=== PATIENT | female | born 1985 | race Caucasian/White ===

== ENCOUNTER 2016-09-12 02:48 | Emergency (ER) | payer OTHER ==
--- NOTE | 2016-09-12 03:32 | PDOC ---
History of Present Illness - General History Source: Patient Exam Limitations: No Limitations - History of Present Illness Initial Comments: 09/12/16 05:04 The patient is a 31 year old female with no PMHx who presents to the ED with bilateral lower quadrant pain and flank pain. Patient is currently menstruating , and has severe cramping. She reports similar severe pain in June and July during menstruation. She reports normal pain and blood clotting, but states that this menstrual period is much worse. She reports taking Advil with no relief. She also reports recent chest pain and left arm pain. She states that she had two previous miscarriages about 2 years ago. She denies any other complaints. <Renetta Hassan - Last Filed: 09/12/16 05:04> <Patricia Oro - Last Filed: 09/15/16 14:08> - General Chief Complaint: Vaginal Bleeding Stated Complaint: ABDOMINAL PAIN Time Seen by Provider: 09/12/16 03:32 Past History <Reentta Hassan - Last Filed: 09/12/16 05:04> - Surgical History Abdominal Surgery: Yes Cholecystectomy: Yes - Reproductive History (#): 4 Para: 2 Cervical CA: No Dysfunctional Uterine Bleeding: No Ectopic : No Endometrial CA: No Polycystic Ovaries: No Therapeutic (s) & number: No Tubal Ligation: No Spontaneous : 1 - Immunization History Immunization Up to Date: Yes - Psycho/Social/Smoking Cessation Hx Anxiety: No Suicidal Ideation: No Smoking Status: No Smoking History: Never smoked Number of Cigarettes Smoked Daily: 0 Information on smoking cessation initiated: No Hx Alcohol Use: No Drug/Substance Use Hx: No Substance Use Type: None Hx Substance Use Treatment: No <Patricia Oro - Last Filed: 09/15/16 14:08> - Past Medical History Allergies/Adverse Reactions: Allergies Allergy/AdvReac Type Severity Reaction Status Date / Time No Known Allergies Allergy Verified 09/12/16 03:25 Home Medications: Ambulatory Orders NK [No Known Home Medication] 09/12/16 Review of Systems - Review of Systems Comments:: 09/12/16 05:04 GENERAL/CONSTITUTIONAL: No fever or chills. No weakness. HEAD, EYES, EARS, NOSE AND THROAT: No change in vision. No ear pain or discharge. No sore throat. CARDIOVASCULAR: No chest pain or shortness of breath. RESPIRATORY: No cough, wheezing, or hemoptysis. GASTROINTESTINAL: + bilateral lower quadrant pain. No nausea, vomiting, diarrhea or constipation. GENITOURINARY: + painful menstrual periods, flank pain. No dysuria, frequency, or change in urination. MUSCULOSKELETAL: No joint or muscle swelling or pain. No neck or back pain. SKIN: No rash NEUROLOGIC: No headache, vertigo, loss of consciousness, or change in strength/ sensation. ENDOCRINE: No increased thirst. No abnormal weight change. HEMATOLOGIC/LYMPHATIC: No anemia, easy bleeding, or history of blood clots. ALLERGIC/IMMUNOLOGIC: No hives or skin allergy. <Kenneth Hassanobedwin Segal - Last Filed: 09/12/16 05:04> *Physical Exam - Vital Signs Last Vital Signs Temp Pulse Resp BP Pulse Ox 98.8 F 75 14 108/66 99 09/12/16 03:26 09/12/16 03:26 09/12/16 03:26 09/12/16 03:26 09/12/16 03:26 - Physical Exam Comments: 09/12/16 05:05 GENERAL: Awake, alert, and fully oriented, in no acute distress HEAD: No signs of trauma EYES: PERRLA, EOMI, sclera anicteric, conjunctiva clear ENT: Auricles normal inspection, hearing grossly normal, nares patent, oropharynx clear without exudates. Moist mucosa NECK: Normal ROM, supple, no lymphadenopathy, JVD, or masses LUNGS: Breath sounds equal, clear to auscultation bilaterally. No wheezes, and no crackles HEART: Regular rate and rhythm, normal S1 and S2, no murmurs, rubs or gallops ABDOMEN: Soft, nontender, normoactive bowel sounds. No guarding, no rebound. No masses EXTREMITIES: Normal range of motion, no edema. No clubbing or cyanosis. No cords, erythema, or tenderness NEUROLOGICAL: Cranial nerves II through XII grossly intact. Normal speech, normal gait SKIN: Warm, Dry, normal turgor, no rashes or lesions noted. 911 TELECOMMUNICATOR: deferred, not <Kenneth Hassanobedwin Segal - Last Filed: 09/12/16 05:04> - Vital Signs Last Vital Signs Temp Pulse Resp BP Pulse Ox 98.8 F 75 14 108/66 99 09/12/16 03:26 09/12/16 03:26 09/12/16 03:26 09/12/16 03:26 09/12/16 03:26 <Patricia Oro - Last Filed: 09/15/16 14:08> ED Treatment Course - LABORATORY CBC & Chemistry Diagram: 09/12/16 03:40 - ADDITIONAL ORDERS Additional order review: Laboratory Results 09/12/16 09/12/16 03:44 03:40 Serum , Qual Negative Urine Color Yellow Urine Appearance Cloudy Urine pH 8.0 Ur Specific [place] 1.013 Urine Protein Negative Urine Glucose (UA) Negative Urine Ketones Negative Urine Blood 3+ H Urine Nitrite Negative Urine Bilirubin Negative Urine Urobilinogen Negative Ur Leukocyte Esterase Trace H D Urine RBC 642 Urine WBC 8 Ur Epithelial Cells Rare Urine Mucus Rare 09/12/16 03:40 RBC 3.94 MCV 75.7 L MCHC 32.3 RDW 16.6 H D MPV 9.3 Neutrophils % 76.9 D Lymphocytes % 13.6 D Monocytes % 7.4 Eosinophils % 0.9 Basophils % 1.2 <Renetta Hassan - Last Filed: 09/12/16 05:04> - LABORATORY CBC & Chemistry Diagram: 09/12/16 03:40 <Patricia Oro - Last Filed: 09/15/16 14:08> Medical Decision Making - Medical Decision Making 09/12/16 06:49 Pt comes with lower abdominal pain during her period. Jun and Jul 2016 and this month she has had painful menses. More pain than usual. SHe is concerned, as she has pain and she tells me that she has had 2 miscarriages in the past. Pt 's labs demonstrate slight anemia. But she states that she has heavy menses always. She doesn't feel dizzy or weak. Serum preg is negative; pt 's other labs are normal. She is awaiting Sonogram in the AM to r/o ovarian cysts vs fibroids. Patient will be signed out to the day doctor. <Patricia Oro - Last Filed: 09/15/16 14:08> *DC/Admit/Observation/Transfer - Attestations Scribe Attestion: 09/12/16 05:06 Documentation prepared by Renetta Hassan, acting as medical practice administrator for Patricia Oro MD. <Renetta Hassan - Last Filed: 09/12/16 05:04> <Patricia Oro - Last Filed: 09/15/16 14:08> Diagnosis at time of Disposition: Metrorrhagia, Menorrhagia - Discharge Dispostion Disposition: HOME Condition at time of disposition: Good - Referrals Referrals: Jessica Vo MD [Staff Physician] - - Patient Instructions Additional Instructions: Follow up with your Can Inspector or Dr. Vo. Motrin is probably best for pain. Return to us if any problems. Best- Dr. Mayur Bueno
[2016-09-12 03:49] VITALS: BMI 27.4
[2016-09-12 03:57] LABS: BASOPHIL 1.2 % (0-2.0); EOSINOPHIL 0.9 % (0-4.5); MCH 24.5 pg (25.7-33.7); MCHC 32.3 g/dl (32.0-36.0); MEAN CELL VOLUME 75.7 fl (80-96); MEAN PLT VOLUME 9.3 fl (7.5-11.1); NEUTROPHILS 76.9 % (42.8-82.8); PLATELET COUNT 184 K/MM3 (134-434); RDW 16.6 % (11.6-15.6)
[2016-09-12 04:07] LABS: URINE APPEARANCE CLOUDY; URINE BILIRUBIN NEGATIVE (NEGATIVE); URINE COLOR YELLOW; URINE GLUCOSE (UA) NEGATIVE (NEGATIVE); URINE KETONE NEGATIVE (NEGATIVE); URINE NITRITE NEGATIVE (NEGATIVE); URINE PROTEIN NEGATIVE (NEGATIVE); URINE UROBILINOGEN NEGATIVE E.U./dl (0.2-1.0)
[2016-09-12 04:11] LABS: URINE BLOOD 3+ (NEGATIVE)
[2016-09-12 04:12] LABS: URINE LEUK ESTERASE TRACE (NEGATIVE)
[2016-09-12 04:24] LABS: URINE MUCUS RARE; URINE RBC 642 /hpf (0-3); URINE WBC 8 /hpf (3-5)
[2016-09-12] MEDS ORDERED: OXYCODONE/APAP 5/325MG COMBO TABLET PO ONE (05:04)
[2016-09-12] MEDS ORDERED: SULFAMETHOXAZOLE/TRIMETHOPRIM 800MG/160MG D.S. TABLET PO ONE (05:04)
--- NOTE | 2016-09-12 11:00 | PDOC ---
*Physical Exam - Vital Signs Last Vital Signs Temp Pulse Resp BP Pulse Ox 98.8 F 75 14 108/66 99 09/12/16 03:26 09/12/16 03:26 09/12/16 03:26 09/12/16 03:26 09/12/16 03:26 ED Treatment Course - LABORATORY CBC & Chemistry Diagram: 09/12/16 03:40 - ADDITIONAL ORDERS Additional order review: Laboratory Results 09/12/16 09/12/16 03:44 03:40 Serum , Qual Negative Urine Color Yellow Urine Appearance Cloudy Urine pH 8.0 Ur Specific [place] 1.013 Urine Protein Negative Urine Glucose (UA) Negative Urine Ketones Negative Urine Blood 3+ H Urine Nitrite Negative Urine Bilirubin Negative Urine Urobilinogen Negative Ur Leukocyte Esterase Trace H D Urine RBC 642 Urine WBC 8 Ur Epithelial Cells Rare Urine Mucus Rare 09/12/16 03:40 RBC 3.94 MCV 75.7 L MCHC 32.3 RDW 16.6 H D MPV 9.3 Neutrophils % 76.9 D Lymphocytes % 13.6 D Monocytes % 7.4 Eosinophils % 0.9 Basophils % 1.2 - Medications Given in the ED: ED Medications Discontinued Medications Generic Name Dose Route Start Last Admin Trade Name Freq PRN Reason Stop Dose Admin Oxycodone/Acetaminophen 2 combo 09/12/16 05:04 09/12/16 05:16 Percocet 5/325 - PO 09/12/16 05:05 2 combo ONCE ONE Administration Trimethoprim/Sulfamethoxazole 1 each 09/12/16 05:04 09/12/16 05:16 Bactrim Ds - PO 09/12/16 05:05 1 each ONCE ONE Administration Medical Decision Making - Medical Decision Making 09/12/16 10:55 Labs and Ultrasound appreciated, patient remains comfortable. Metromenorrhagia. Will DC Home. *DC/Admit/Observation/Transfer Diagnosis at time of Disposition: Metrorrhagia Menorrhagia Qualifiers: Menorrahagia type: with regular cycle Qualified Code(s): N92.0 - Excessive and frequent menstruation with regular cycle - Discharge Dispostion Disposition: HOME Condition at time of disposition: Good Admit: No - Referrals Referrals: Jessica Vo MD [Staff Physician] - - Patient Instructions Additional Instructions: Follow up with your Production Planning Manager or Dr. Vo. Motrin is probably best for pain. Return to us if any problems. Best- Dr. Mayur Bueno
[2016-09-12 11:52] VITALS: BP 98/56; PULSE 76; TEMP 98.2
== END 2016-09-12 11:52 | disposition home or self-care (01) ==
LOC: JER 02:48
DX: N92.0 Excessive and frequent menstruation with regular cycle (principal)
CPT/HCPCS: 36415; 76830-TC; 81003; 81015; 84703; 85025; 99283-25

== ENCOUNTER 2017-07-29 16:30 | Emergency (ER) | payer OTHER ==
[2017-07-29 17:20] VITALS: BP 119/58; PULSE 84; TEMP 98.9; BMI 28.7
--- NOTE | 2017-07-29 17:25 | PDOC ---
Rapid Medical Evaluation Chief Complaint: Respiratory Time Seen by Provider: 07/29/17 17:15 Medical Evaluation: Allergies Allergy/AdvReac Type Severity Reaction Status Date / Time No Known Allergies Allergy Verified 07/29/17 17:20 Vital Signs Temp Pulse Resp BP Pulse Ox 98.9 F 84 20 119/58 99 07/29/17 17:16 07/29/17 17:16 07/29/17 17:16 07/29/17 17:16 07/29/17 17:16 07/29/17 17:21 I have performed a brief in-person evaluation of this patient. The patient presents with a chief complaint of: Hacking Cough, abdominal muscle pain with coughing, tactile fever. Pertinent physical exam findings: Rhonchi cleared with cough. Diaphoretic, tacypneic. I have ordered the following: Rapid influenza, urine , Chest xray The patient will proceed to the ED for further evaluation.
--- NOTE | 2017-07-29 18:40 | PDOC ---
History of Present Illness - General History Source: Patient Exam Limitations: No Limitations - History of Present Illness Initial Comments: 07/29/17 18:58 The patient is a 31 year old female with no significant past medical history who presents to the emergency room with fever and chills for 5 days. The patient states that she has not tried to treat her symptoms at home. She denies any recent sick contacts or extended travel. <Zach Vargas - Last Filed: 07/29/17 18:58> <Mayur Bueno - Last Filed: 07/29/17 22:04> - General Chief Complaint: Respiratory Stated Complaint: FATIGUE Time Seen by Provider: 07/29/17 17:15 Past History <Zach Vargas - Last Filed: 07/29/17 18:58> - Surgical History Abdominal Surgery: Yes Cholecystectomy: Yes - Reproductive History (#): 4 Para: 2 Cervical CA: No Dysfunctional Uterine Bleeding: No Ectopic : No Endometrial CA: No Polycystic Ovaries: No Therapeutic (s) & number: No Tubal Ligation: No Spontaneous : 1 - Immunization History Immunization Up to Date: Yes - Suicide/Smoking/Psychosocial Hx Smoking Status: No Smoking History: Never smoked Number of Cigarettes Smoked Daily: 0 Hx Alcohol Use: No Drug/Substance Use Hx: No Substance Use Type: None Hx Substance Use Treatment: No <Mayur Bueno - Last Filed: 07/29/17 22:04> - Past Medical History Allergies/Adverse Reactions: Allergies Allergy/AdvReac Type Severity Reaction Status Date / Time No Known Allergies Allergy Verified 07/29/17 17:20 Home Medications: Ambulatory Orders Azithromycin [Zithromax -] 250 mg PO UTDICT #6 tab 07/29/17 Promethazine/Phenyleph/Codeine [Phenergan VC+Codeine Syrup] 5 ml PO TID #75 ml MDD 15 07/29/17 Review of Systems - Review of Systems Able to Perform ROS?: Yes Comments:: 07/29/17 18:58 GENERAL/CONSTITUTIONAL: (+) Fever. No chills. No weakness. HEAD, EYES, EARS, NOSE AND THROAT: No change in vision. No ear pain or discharge. No sore throat. CARDIOVASCULAR: No chest pain or shortness of breath. RESPIRATORY: (+) Cough. No wheezing, or hemoptysis. GASTROINTESTINAL: No nausea, vomiting, diarrhea or constipation. GENITOURINARY: No dysuria, frequency, or change in urination. MUSCULOSKELETAL: No joint or muscle swelling or pain. No neck or back pain. SKIN: No rash NEUROLOGIC: No headache, vertigo, loss of consciousness, or change in strength/ sensation. ENDOCRINE: No increased thirst. No abnormal weight change. HEMATOLOGIC/LYMPHATIC: No anemia, easy bleeding, or history of blood clots. ALLERGIC/IMMUNOLOGIC: No hives or skin allergy. <Zach Vargas - Last Filed: 07/29/17 18:58> *Physical Exam - Vital Signs Last Vital Signs Temp Pulse Resp BP Pulse Ox 98.9 F 84 20 119/58 99 07/29/17 17:16 07/29/17 17:16 07/29/17 17:16 07/29/17 17:16 07/29/17 17:16 - Physical Exam Comments: 07/29/17 18:59 GENERAL: Awake, alert, and fully oriented, in no acute distress HEAD: No signs of trauma EYES: PERRLA, EOMI, sclera anicteric, conjunctiva clear ENT: Auricles normal inspection, hearing grossly normal, nares patent, oropharynx clear without exudates. Moist mucosa NECK: Normal ROM, supple, no lymphadenopathy, JVD, or masses LUNGS: Breath sounds equal, clear to auscultation bilaterally. No wheezes, and no crackles HEART: Regular rate and rhythm, normal S1 and S2, no murmurs, rubs or gallops ABDOMEN: Soft, nontender, normoactive bowel sounds. No guarding, no rebound. No masses EXTREMITIES: Normal range of motion, no edema. No clubbing or cyanosis. No cords, erythema, or tenderness NEUROLOGICAL: Cranial nerves II through XII grossly intact. Normal speech, normal gait SKIN: Warm, Dry, normal turgor, no rashes or lesions noted. <Zach Vargas - Last Filed: 07/29/17 18:58> - Vital Signs Last Vital Signs Temp Pulse Resp BP Pulse Ox 98.9 F 84 20 119/58 99 07/29/17 17:16 07/29/17 17:16 07/29/17 17:16 07/29/17 17:16 07/29/17 17:16 <Mayur Bueno - Last Filed: 07/29/17 22:04> ED Treatment Course - ADDITIONAL ORDERS Additional order review: Laboratory Results 07/29/17 17:40 Urine HCG, Qual Negative 07/29/17 17:40 Influenza Types A,B Antigen (HOWIE) - Final Nasopharyngeal Swab - Final <Zach Vargas - Last Filed: 07/29/17 18:58> - LABORATORY CBC & Chemistry Diagram: 07/29/17 21:10 07/29/17 21:10 - ADDITIONAL ORDERS Additional order review: Laboratory Results 07/29/17 17:40 Urine HCG, Qual Negative 07/29/17 17:40 Influenza Types A,B Antigen (HOWIE) - Final Nasopharyngeal Swab - Final <Mayur Bueno - Last Filed: 07/29/17 22:04> *DC/Admit/Observation/Transfer - Attestations Scribe Attestion: 07/29/17 18:59 Documentation prepared by Zach Vargas, acting as medical delivery driver for Mayur Bueno DO. <Zach Vargas - Last Filed: 07/29/17 18:58> - Discharge Dispostion Admit: No - Attestations Physician Attestion: 07/29/17 18:39 I, Dr. Mayur Bueno, attest that this document has been prepared under my direction and personally reviewed by me in its entirety. I further attest, that it accurately reflects all work, treatment, procedures and medical decision -making performed by me. <Mayur Bueno - Last Filed: 07/29/17 22:04> Diagnosis at time of Disposition: Pneumonia Qualifiers: Pneumonia type: due to unspecified organism Laterality: unspecified laterality Lung location: unspecified part of lung Qualified Code(s): J18.9 - Pneumonia, unspecified organism - Discharge Dispostion Disposition: HOME Condition at time of disposition: Improved - Prescriptions Prescriptions: Azithromycin [Zithromax -] 250 mg PO UTDICT #6 tab Promethazine/Phenyleph/Codeine [Phenergan VC+Codeine Syrup] 5 ml PO TID #75 ml MDD 15 - Patient Instructions Printed Discharge Instructions: Pneumonia-Adult, DI for Pneumonia -- Adult Additional Instructions: Betsy- Sorry this happened to you. Drink plenty of fluids. Take tylenol for fever. Return to us if worse. See your doctor next week. Sohail- Dr. Mayur Bueno
[2017-07-29] MEDS ORDERED: SODIUM CHLORIDE 1,000 ML IV STA (18:57)
[2017-07-29 21:31] LABS: BASO % 1.1 % (0-2.0); EOS % 1.5 % (0-4.5); HEMATOCRIT 33.3 % (32.4-45.2); HEMOGLOBIN 11.1 GM/dL (10.7-15.3); LYMPH % 33.8 % (8-40); MCH 27.3 pg (25.7-33.7); MCHC 33.3 g/dl (32.0-36.0); MEAN PLT VOLUME 9.7 fl (7.5-11.1); MONO % 12.1 % (3.8-10.2); NEUT % 51.5 % (42.8-82.8); PLATELET COUNT 180 K/MM3 (134-434); RBC 4.06 M/mm3 (3.60-5.2); RDW 14.9 % (11.6-15.6); WHITE BLOOD COUNT 3.8 K/mm3 (4.0-10.0)
[2017-07-29] MEDS ORDERED: cefTRIAXone 1 GM/50 ML BAG (PRE-DOCKED) IVPB ONE (21:50)
[2017-07-29] MEDS ORDERED: AZITHROMYCIN 250 MG TABLET PO ONE (21:52)
[2017-07-29 22:04] LABS: ALBUMIN 3.4 g/dl (3.4-5.0); ALK PHOS 63 U/L (45-117); ANION GAP 7 (8-16); BILIRUBIN,TOTAL 0.3 mg/dL (0.2-1.0); BLOOD UREA NITROGEN 13 mg/dL (7-18); CALCIUM 7.9 mg/dL (8.5-10.1); CHLORIDE 107 mmol/L (98-107); CO2 24 mmol/L (21-32); CREATININE 0.6 mg/dL (0.55-1.02); GLUCOSE,RANDOM 71 mg/dL (74-106); POTASSIUM 3.7 mmol/L (3.5-5.1); SGOT/AST 28 U/L (15-37); SGPT/ALT 39 U/L (12-78); SODIUM 138 mmol/L (136-145); TOT PROT 7.6 g/dl (6.4-8.2)
[2017-07-29] MEDS ORDERED: AZITHROMYCIN IVPB 250 ML IVPB ONE (22:05)
[2017-07-29] MEDS ORDERED: CEFTRIAXONE 1 GM/50 ML BAG ONE (22:05)
[2017-07-29] MEDS ORDERED: AZITHROMYCIN IVPB 500 MG in DEXTROSE 5%-WATER - 250 ML IVPB ONE (22:48)
[2017-07-29] MEDS ORDERED: ACETAMINOPHEN 325 MG TABLET (FP) PO ONE (23:09)
[2017-07-29] MEDS ORDERED: ACETAMINOPHEN 325 MG TABLET (FP) ONE (23:11)
== END 2017-07-30 00:14 | disposition home or self-care (01) ==
LOC: JER 16:30
PROC: 3E03329 Introduction of Other Anti-infective into Peripheral Vein, Percutaneous Approach (ICD-10-PCS; principal; 2017-07-29)
PROC: 3E0337Z Introduction of Electrolytic and Water Balance Substance into Peripheral Vein, Percutaneous Approach (ICD-10-PCS; 2017-07-29)
DX: J18.9 Pneumonia, unspecified organism (principal)
CPT/HCPCS: 36415; 71020-TC; 80053; 84703; 85025; 87040; 87804; 99282-25

== ENCOUNTER 2018-06-14 22:29 | Emergency (ER) | payer SELFPAY ==
[2018-06-14 22:43] VITALS: BMI 29.1
--- NOTE | 2018-06-14 23:36 | PDOC ---
History of Present Illness - General History Source: Patient Exam Limitations: No Limitations - History of Present Illness Initial Comments: 06/15/18 00:02 The patient is a 32-year-old female with no significant past medical history presents to the emergency department with a headache, and R. sided numbness. The patient presents with an occipital headache for the past 3 days, thats worsened with looking down, that further exacerbated into R. sided numbness sensation on Tuesday. The patient reports an additional concern of R. ear pain. The patient states she was sick about a week ago for the 4 days, associated with a sore throat. Denies falls, injury or trauma to the head, hx of a migraine , currently having a fever, chills, chest pain, shortness of breath, abdominal pain, urinary symptoms or changes in bowel habits. Denies diplopia, photophobia , dizziness, vertigo, tingling or loss of sensation. Allergies: NKA Social history: No past or present use of tobacco, alcohol or recreational drug. Surgical history: Cholecystectomy (12 years ago) PCP: None reported. <Helen Cali - Last Filed: 06/15/18 00:24> <Jojo Campo - Last Filed: 06/15/18 02:09> - General Chief Complaint: Migraine Headache Stated Complaint: HEADACHE Time Seen by Provider: 06/14/18 23:34 tPA Exclusion checklist 3-4.5h - Time Elapsed Date last known well: 06/11/18 - Thrombolytic Therapy Candidate Is patient eligible for thrombolytic therapy: No - Ineligibility reason(s) Reasons No tPA given: Outside of window - delayed arrival (symptoms of numbness since x 4 days) <Jojo Campo - Last Filed: 06/15/18 02:09> NIH Stroke Scale - Last Known Well Date/Time & Onset Date Last Known Well: 06/11/18 - Initial Evaluation Level of consciousness: Alert Ask patient the month and their age: Answers both correctly Ask patient to open & close eyes; make fist and let go: Obeys both correctly Best gaze (horizontal eye movement): Normal Visual field testing: No visual field loss Facial paresis (Show teeth/raise eyebrows/close eyes tight): Normal symmetrical movement Motor Function: Left Arm: Normal Motor Function: Right Arm: Normal (extends arm 90 (or 45) degrees for 10 seconds without drift Motor Function: Left Leg: Normal (extends leg 30 degrees for 5 seconds without drift) Motor Function: Right Leg: Normal (extends leg 30 degrees for 5 seconds without drift) Limb Ataxia: No ataxia Sensory(Use pinprick test arms,legs,trunk,face/side to side): Normal Best language (Describe picture, name items, read sentences): No Aphasia Dysarthria (read several words): Normal articulation Extinction and Inattention: No abnormality - Total Score NIH Stroke Scale Score: 0 <Jojo Campo - Last Filed: 06/15/18 02:09> Past History <Helen Cali - Last Filed: 06/15/18 00:24> - Past Medical History COPD: No - Surgical History Abdominal Surgery: Yes Cholecystectomy: Yes - Reproductive History (#): 4 Para: 2 Cervical CA: No Dysfunctional Uterine Bleeding: No Ectopic : No Endometrial CA: No Polycystic Ovaries: No Therapeutic (s) & number: No Tubal Ligation: No Spontaneous : 1 - Immunization History Immunization Up to Date: Yes - Suicide/Smoking/Psychosocial Hx Smoking Status: No Smoking History: Never smoked Have you smoked in the past 12 months: No Number of Cigarettes Smoked Daily: 0 Information on smoking cessation initiated: No Hx Alcohol Use: No Drug/Substance Use Hx: No Substance Use Type: None Hx Substance Use Treatment: No <Jojo Campo - Last Filed: 06/15/18 02:09> - Past Medical History Allergies/Adverse Reactions: Allergies Allergy/AdvReac Type Severity Reaction Status Date / Time No Known Allergies Allergy Verified 06/14/18 22:43 Home Medications: Ambulatory Orders NK [No Known Home Medication] 06/14/18 Review of Systems - Review of Systems Able to Perform ROS?: Yes Comments:: 06/15/18 00:03 GENERAL/CONSTITUTIONAL: No fever or chills. No weakness. HEAD, EYES, EARS, NOSE AND THROAT: +R. Ear pain without discharge. No change in vision. No left side ear pain or discharge. No sore throat. CARDIOVASCULAR: No chest pain or shortness of breath. RESPIRATORY: No cough, wheezing, or hemoptysis. GASTROINTESTINAL: No nausea, vomiting, diarrhea or constipation. GENITOURINARY: No dysuria, frequency, or change in urination. MUSCULOSKELETAL: No joint or muscle swelling or pain. No neck or back pain. SKIN: No rash NEUROLOGIC: + headache, R. sided numbness No vertigo, loss of consciousness, or change in strength/sensation. ENDOCRINE: No increased thirst. No abnormal weight change. HEMATOLOGIC/LYMPHATIC: No anemia, easy bleeding, or history of blood clots. ALLERGIC/IMMUNOLOGIC: No hives or skin allergy. <Helen Cali - Last Filed: 06/15/18 00:24> *Physical Exam - Vital Signs Last Vital Signs Temp Pulse Resp BP Pulse Ox 98.0 F 66 16 151/86 100 06/14/18 22:40 06/14/18 22:40 06/14/18 22:40 06/14/18 22:40 06/14/18 22:40 - Physical Exam Comments: 06/15/18 00:24 GENERAL: Awake, alert, and fully oriented, in no acute distress HEAD: No signs of trauma EYES: PERRLA, EOMI, sclera anicteric, conjunctiva clear ENT: posterior pharynx clear. R. ears clear. Auricles normal inspection, hearing grossly normal, nares patent, oropharynx clear without exudates. Moist mucosa NECK: No menginal sign, no nuchal rigidity. Normal ROM, supple, no lymphadenopathy, JVD, or masses LUNGS: Breath sounds equal, clear to auscultation bilaterally. No wheezes, and no crackles HEART: Regular rate and rhythm, normal S1 and S2, no murmurs, rubs or gallops ABDOMEN: Soft, nontender. No guarding, no rebound. No masses EXTREMITIES: Normal range of motion, no edema. No clubbing or cyanosis. No cords, erythema, or tenderness NEUROLOGICAL: Cranial nerves II through XII grossly intact. Tenderness over R. mastriod, maxillary and frontal sinus. Ambulating with a steady gait. 5/5 strength upper extremity, 5/5 strength lower extremity, sensation intact. SKIN: Warm, Dry, normal turgor, no rashes or lesions noted. <Helen Cali - Last Filed: 06/15/18 00:24> - Vital Signs Last Vital Signs Temp Pulse Resp BP Pulse Ox 98.0 F 66 16 151/86 100 06/14/18 22:40 06/14/18 22:40 06/14/18 22:40 06/14/18 22:40 06/14/18 22:40 <Jojo Campo - Last Filed: 06/15/18 02:09> ED Treatment Course - LABORATORY CBC & Chemistry Diagram: 06/15/18 00:21 06/15/18 00:21 <Jojo Campo - Last Filed: 06/15/18 02:09> Medical Decision Making - Medical Decision Making 06/15/18 01:42 a/p: 32yo female with R sided roy, R facial tingling -symptoms since tuesday -no meningeal signs -sinus ttp and R mastoid ttp -concern for sinusitis vs mastoiditis -fevers last week which have since resolved -will send labs, head ct -will medicate -neuro intact 06/15/18 02:08 labs reviewed +uti will start abx head ct pending pt signed out to the oncoming ED physician pending re-eval and head ct <Jojo Campo - Last Filed: 06/15/18 02:09> *DC/Admit/Observation/Transfer - Attestations Scribe Attestion: 06/15/18 00:10 Documentation prepared by Helen Cali, acting as medical housekeeper for Jojo Campo DO. <Helen Cali - Last Filed: 06/15/18 00:24> - Discharge Dispostion Decision to Admit order: No - Attestations Physician Attestion: 06/15/18 02:08 I, Dr. Jojo Campo DO, attest that this document has been prepared under my direction and personally reviewed by me in its entirety. I further attest, that it accurately reflects all work, treatment, procedures and medical decision -making performed by me. <Jojo Campo - Last Filed: 06/15/18 02:09> Diagnosis at time of Disposition: UTI (lower urinary tract infection), Headache - Discharge Dispostion Condition at time of disposition: Stable - Patient Instructions Printed Discharge Instructions: DI for Urinary Tract Infection (UTI), DI for Headache
[2018-06-14] MEDS ORDERED: SODIUM CHLORIDE 0.9% 1000 ML INFUS.BAG IV ONE (23:50)
[2018-06-14] MEDS ORDERED: METOCLOPRAMIDE HCL INJECTION 10 MG/2 ML VIAL IVPUSH ONE (23:50)
[2018-06-15] MEDS ORDERED: METOCLOPRAMIDE HCL INJECTION 10 MG/2 ML VIAL ONE (00:33)
[2018-06-15 00:34] LABS: BASO % 1.3 % (0-2.0); EOS % 2.1 % (0-4.5); HEMATOCRIT 29.4 % (32.4-45.2); HEMOGLOBIN 9.4 GM/dL (10.7-15.3); LYMPH % 45.7 % (8-40); MCH 22.8 pg (25.7-33.7); MCHC 32.1 g/dl (32.0-36.0); MEAN CELL VOLUME 71.1 fl (80-96); MEAN PLT VOLUME 8.9 fl (7.5-11.1); MONO % 7.9 % (3.8-10.2); PLATELET COUNT 267 K/MM3 (134-434); RBC 4.14 M/mm3 (3.60-5.2); RDW 18.1 % (11.6-15.6); WHITE BLOOD COUNT 5.7 K/mm3 (4.0-10.0)
[2018-06-15 00:48] LABS: URINE APPEARANCE TURBID; URINE BILIRUBIN NEGATIVE (<2.0 mg/dL); URINE COLOR YELLOW; URINE GLUCOSE (UA) NEGATIVE (NEGATIVE); URINE KETONE NEGATIVE (NEGATIVE); URINE LEUK ESTERASE 3+ (NEGATIVE); URINE NITRITE NEGATIVE (NEGATIVE); URINE PROTEIN 2+ (NEGATIVE); URINE UROBILINOGEN NEGATIVE mg/dL (0.2-1.0)
[2018-06-15 00:50] LABS: HCG,QUALITATIVE URINE Negative
[2018-06-15 00:53] LABS: EPI CELLS MANY /HPF (FEW); URINE BACTERIA MODERATE /hpf (NONE SEEN); URINE MUCUS RARE
[2018-06-15 01:00] LABS: ALBUMIN 3.5 g/dl (3.4-5.0); ALK PHOS 68 U/L (45-117); ANION GAP 6 MMOL/L (8-16); BILIRUBIN,TOTAL 0.2 mg/dL (0.2-1); BLOOD UREA NITROGEN 12 mg/dL (7-18); CALCIUM 8.2 mg/dL (8.5-10.1); CHLORIDE 107 mmol/L (98-107); CO2 26 mmol/L (21-32); CREATININE 0.7 mg/dL (0.55-1.3); GLUCOSE,RANDOM 85 mg/dL (74-106); POTASSIUM 3.9 mmol/L (3.5-5.1); SGOT/AST 21 U/L (15-37); SGPT/ALT 25 U/L (13-61); SODIUM 139 mmol/L (136-145); TOT PROT 7.4 g/dl (6.4-8.2)
[2018-06-15] MEDS ORDERED: CEFTRIAXONE 1 GM in DEXTROSE 5%-WATER - 100 ML IVPB ONE (01:42)
[2018-06-15] MEDS ORDERED: CEFTRIAXONE 1 GM/50 ML BAG ONE (02:27)
--- NOTE | 2018-06-15 03:08 | PDOC ---
*Physical Exam - Vital Signs Last Vital Signs Temp Pulse Resp BP Pulse Ox 98.0 F 66 16 151/86 100 06/14/18 22:40 06/14/18 22:40 06/14/18 22:40 06/14/18 22:40 06/14/18 22:40 - Physical Exam Comments: 06/15/18 03:05 Well appearing, was resting comfortably on re-evaluation. Neck supple, mild ttp over R lateral neck, no mastoid tenderness No focal deficits Vascular Pulses: Femoral (R): 4+, Femoral (L): 4+, Carotid (R): 4+, Carotid (L) : 4+, Dorsalis-Pedis (R): 4+, Doralis-Pedis (L): 4+ ED Treatment Course - LABORATORY CBC & Chemistry Diagram: 06/15/18 00:21 06/15/18 00:21 - ADDITIONAL ORDERS Additional order review: Laboratory Results 06/15/18 06/15/18 00:21 00:21 Sodium 139 Potassium 3.9 Chloride 107 Carbon Dioxide 26 Anion Gap 6 L BUN 12 Creatinine 0.7 Creat Clearance w eGFR > 60 Random Glucose 85 Calcium 8.2 L Magnesium 2.0 Total Bilirubin 0.2 AST 21 ALT 25 Alkaline Phosphatase 68 Total Protein 7.4 Albumin 3.5 Urine Color Yellow Urine Appearance Turbid Urine pH 7.0 Ur Specific [place] 1.015 Urine Protein 2+ H Urine Glucose (UA) Negative Urine Ketones Negative Urine Blood 1+ H Urine Nitrite Negative Urine Bilirubin Negative Urine Urobilinogen Negative Ur Leukocyte Esterase 3+ H D Urine WBC (Auto) 715 Urine RBC (Auto) 13 Ur Epithelial Cells Many Urine Bacteria Moderate Urine Mucus Rare Urine HCG, Qual Negative 06/15/18 00:21 RBC 4.14 MCV 71.1 L MCHC 32.1 RDW 18.1 H MPV 8.9 Neutrophils % 43.0 Lymphocytes % 45.7 H D Monocytes % 7.9 Eosinophils % 2.1 Basophils % 1.3 - Medications Given in the ED: ED Medications Discontinued Medications Generic Name Dose Route Start Last Admin Trade Name Freq PRN Reason Stop Dose Admin Diphenhydramine HCl 12.5 mg 06/14/18 23:50 06/15/18 00:43 Benadryl Injection - IVPUSH 06/14/18 23:51 12.5 mg ONCE ONE Administration Ceftriaxone Sodium 1 gm/ 100 mls @ 200 mls/hr 06/15/18 01:42 06/15/18 02:33 Dextrose IVPB 06/15/18 02:11 200 mls/hr ONCE ONE Administration Protocol Metoclopramide HCl 10 mg 06/14/18 23:50 06/15/18 00:44 Reglan Injection - IVPUSH 06/14/18 23:51 10 mg ONCE ONE Administration Sodium Chloride 1,000 ml 06/14/18 23:50 06/15/18 00:43 Normal Saline - IV 06/14/18 23:51 1,000 ml ONCE ONE Administration Progress Note - Progress Note Progress Note: Patient was resting comfortably Endorses resolution of symptoms after intervention Medical Decision Making - Medical Decision Making 06/15/18 03:07 CT H w/o any signs of acute pathology Symptoms improved cystitis on labs dc home with abx course for cystitis *DC/Admit/Observation/Transfer Diagnosis at time of Disposition: UTI (lower urinary tract infection), Headache - Discharge Dispostion Condition at time of disposition: Stable - Prescriptions Prescriptions: Cephalexin [Keflex] 500 mg PO BID 5 Days #10 capsule - Referrals - Patient Instructions Printed Discharge Instructions: DI for Urinary Tract Infection (UTI), DI for Headache - Post Discharge Activity
[2018-06-15 03:27] VITALS: BP 148/84; PULSE 81; TEMP 97.6
== END 2018-06-15 03:27 | disposition home or self-care (01) ==
LOC: JER 22:29
DX: R51 Headache (principal); N39.0 Urinary tract infection, site not specified
CPT/HCPCS: 36415; 70450-TC; 80053; 81003; 81015; 83735; 84703; 85025; 87070; 99282-25; J7030

== ENCOUNTER 2020-05-12 13:35 | Inpatient (IN) | payer OTHER ==
[2020-05-12 15:45] VITALS: BMI 29.7
[2020-05-12 15:47] LABS: BASO % 0.5 % (0-2.0); EOS % 0.2 % (0-4.5); HEMATOCRIT 29.1 % (32.4-45.2); HEMOGLOBIN 9.1 GM/dL (10.7-15.3); LYMPH % 16.7 % (8-40); MCH 22.1 pg (25.7-33.7); MCHC 31.1 g/dl (32.0-36.0); MEAN CELL VOLUME 71.2 fl (80-96); MEAN PLT VOLUME 9.7 fl (7.5-11.1); MONO % 3.6 % (3.8-10.2); PLATELET COUNT 220 K/MM3 (134-434); RBC 4.09 M/mm3 (3.60-5.2); RDW 27.5 % (11.6-15.6); WHITE BLOOD COUNT 6.9 K/mm3 (4.0-10.0)
[2020-05-12 15:54] LABS: INR 0.97 (0.83-1.09); PROTHROMBIN TIME (PATIENT) 11.4 SEC (9.7-13.0)
[2020-05-12 15:56] LABS: ACTIVATED PTT 25.9 SECONDS (25.2-36.5)
[2020-05-12 16:05] LABS: BLOOD UREA NITROGEN 7.7 mg/dL (7-18); CALCIUM 8.7 mg/dL (8.5-10.1); CREATININE 0.5 mg/dL (0.55-1.3); POTASSIUM 4.4 mmol/L (3.5-5.1)
[2020-05-12] MEDS ORDERED: DINOPROSTONE 10 MG VAGINAL SUPPOSITORY VG ONE (16:05)
[2020-05-12] MEDS: ELECTROLYTE-148 SOLN 1,000 ML IV SCH (16:15)
[2020-05-12 17:20] LABS: ANISOCYTOSIS 3+; PLATELET ESTIMATE ADEQUATE
[2020-05-13] MEDS ORDERED: DINOPROSTONE 10 MG VAGINAL SUPPOSITORY VG ONE (02:54)
[2020-05-13] MEDS: DEXTROSE 5%-LACTATED RINGERS 1,000 ML IV SCH ×2 (06:29→13:20)
[2020-05-13] MEDS ORDERED: OXYTOCIN 30 UNITS in 0.9% NS 30 UNIT/500 ML INFUS.BAG IVPB ONE (11:38)
[2020-05-13] MEDS ORDERED: OXYTOCIN 30 UNITS in 0.9% NS 30 UNIT/500 ML INFUS.BAG IVPB SCH (12:00)
[2020-05-13] MEDS ORDERED: BUTORPHANOL TARTRATE 2 MG/ML VIAL ONE (14:26)
[2020-05-13] MEDS ORDERED: PROMETHAZINE HCL 25 MG/1 ML VIAL ONE (14:26)
[2020-05-13] MEDS ORDERED: PROMETHAZINE HCL 25 MG/1 ML VIAL IVPB ONE (15:15)
[2020-05-13] MEDS ORDERED: BUTORPHANOL TARTRATE 1 MG/ML VIAL IVPB ONE (15:15)
[2020-05-13] MEDS: ELECTROLYTE-148 SOLN 1,000 ML IV SCH ×2 (16:16→18:40)
[2020-05-13] MEDS ORDERED: CITRIC ACID/SODIUM CITRATE 30 ML UNIT-DOSE CUP PO ONE (18:47)
[2020-05-13] MEDS ORDERED: ELECTROLYTE-148 SOLN 1,000 ML IV SCH (19:00)
[2020-05-13] MEDS ORDERED: OXYTOCIN 20 UNITS in 0.9% NS 20 UNIT/1,000 ML INFUS.BAG IV ONE (19:03)
[2020-05-13] MEDS ORDERED: morphine SULFATE/PF 0.5 MG/ML (2cc Syringe - QUVA) ONE (19:04)
[2020-05-13] MEDS ORDERED: SUCCINYLCHOLINE CHLORIDE 200 MG/10 ML SYRINGE ONE (20:04)
[2020-05-13] MEDS ORDERED: ETOMIDATE 20 MG/10 ML AMPUL IVPUSH ONE (20:04)
[2020-05-13] MEDS ORDERED: PROPOFOL 20 ML ONE (20:04)
[2020-05-13] MEDS ORDERED: METHYLERGONOVINE MALEATE 0.2 MG/1 ML AMP IM PRN (20:18)
[2020-05-13] MEDS ORDERED: IBUPROFEN 800 MG/8 ML IJ IVPB PRN (20:18)
[2020-05-13] MEDS ORDERED: BENZOCAINE 28 GM HEMORRHOIDAL OINTMENT PR PRN (20:18)
[2020-05-13] MEDS ORDERED: oxyCODONE HCL 5 MG TABLET PO PRN (20:18)
[2020-05-13] MEDS ORDERED: WITCH HAZEL 50% (TUCKS) 40 PAD/JAR PAD TP PRN (20:18)
[2020-05-13] MEDS ORDERED: diphenhydrAMINE HCL 25 MG CAPSULE (FP) PO PRN (20:18)
[2020-05-13] MEDS ORDERED: BENZOCAINE 20% 57 GM BOTTLE TP PRN (20:18)
[2020-05-13] MEDS ORDERED: OXYTOCIN 20 UNITS in 0.9% NS 20 UNIT/1,000 ML INFUS.BAG IV SCH (20:30)
[2020-05-13 21:13] LABS: CORD BASE EXCESS -5.5 mmol/L (0-2); CORD HCO3 19.9 mmHg (20-29); CORD HCO3 21.1 mmHg (20-29); CORD PCO2 50.6 mmHg (30-78); CORD pH 7.213 (7.14-7.44); CORD pH 7.289 (7.14-7.44)
[2020-05-14] MEDS: CEFAZOLIN 1 GM/D5W 1 GM/50 ML BAG IVPB SCH ×2 (01:34→09:45)
[2020-05-14 08:14] LABS: BASO % 0.4 % (0-2.0); EOS % 0.1 % (0-4.5); HEMATOCRIT 24.4 % (32.4-45.2); HEMOGLOBIN 7.7 GM/dL (10.7-15.3); LYMPH % 15.3 % (8-40); MCH 23.3 pg (25.7-33.7); MCHC 31.7 g/dl (32.0-36.0); MEAN CELL VOLUME 73.4 fl (80-96); MEAN PLT VOLUME 9.8 fl (7.5-11.1); MONO % 5.8 % (3.8-10.2); NEUT % 78.4 % (42.8-82.8); PLATELET COUNT 168 K/MM3 (134-434); RBC 3.33 M/mm3 (3.60-5.2); RDW 28.5 % (11.6-15.6)
[2020-05-14] MEDS: ENOXAPARIN NA (PORCINE) 40 MG/0.4 ML DISP.SYRIN SQ SCH (09:52)
[2020-05-14] MEDS ORDERED: FLU VACCINE (FLULAVAL) PF 60 MCG/0.5 ML SYRINGE 2020-2021 IM ONE (10:00)
[2020-05-14] MEDS ORDERED: BISACODYL 10 MG SUPP.RECT PR PRN (20:18)
[2020-05-14] MEDS: ACETAMINOPHEN 325 MG TABLET (FP) PO PRN (20:56)
[2020-05-14] MEDS: oxyCODONE HCL 5 MG TABLET PO PRN (20:57)
[2020-05-14] MEDS: SIMETHICONE 80 MG TAB.CHEW (FP) PO PRN (20:58)
[2020-05-15] MEDS: IBUPROFEN 600 MG TABLET (FP) PO PRN ×3 (00:10→23:22)
[2020-05-15] MEDS: oxyCODONE HCL 5 MG TABLET PO PRN (07:36)
[2020-05-15] MEDS: ACETAMINOPHEN 325 MG TABLET (FP) PO PRN ×3 (07:37→23:22)
[2020-05-15] MEDS: SIMETHICONE 80 MG TAB.CHEW (FP) PO PRN ×2 (07:40→23:23)
[2020-05-15] MEDS: ENOXAPARIN NA (PORCINE) 40 MG/0.4 ML DISP.SYRIN SQ SCH (09:03)
[2020-05-15] MEDS ORDERED: SENNOSIDES/DOCUSATE COMBO (SENNA PLUS) TABLET (UD) PO PRN (22:00)
[2020-05-16 08:06] LABS: BASO % 0.5 % (0-2.0); EOS % 1.4 % (0-4.5); HEMATOCRIT 22.2 % (32.4-45.2); LYMPH % 15.5 % (8-40); MCH 22.9 pg (25.7-33.7); MCHC 31.4 g/dl (32.0-36.0); MEAN CELL VOLUME 72.9 fl (80-96); MEAN PLT VOLUME 9.7 fl (7.5-11.1); MONO % 4.7 % (3.8-10.2); NEUT % 77.9 % (42.8-82.8); PLATELET COUNT 178 K/MM3 (134-434); RBC 3.05 M/mm3 (3.60-5.2); RDW 29.1 % (11.6-15.6); WHITE BLOOD COUNT 8.6 K/mm3 (4.0-10.0)
[2020-05-16] MEDS: ACETAMINOPHEN 325 MG TABLET (FP) PO PRN (08:57)
[2020-05-16] MEDS: SIMETHICONE 80 MG TAB.CHEW (FP) PO PRN (08:58)
[2020-05-16] MEDS: IBUPROFEN 600 MG TABLET (FP) PO PRN (08:59)
[2020-05-16 09:31] VITALS: BP 119/72; PULSE 66; TEMP 98.1
[2020-05-16] MEDS: ENOXAPARIN NA (PORCINE) 40 MG/0.4 ML DISP.SYRIN SQ SCH (10:39)
[2020-05-16 13:49] LABS: ANISOCYTOSIS 2+; OVALOCYTE 1+; PLATELET ESTIMATE NORMAL; TEAR DROP CELLS 1+
== END 2020-05-16 13:15 | disposition home or self-care (01) | DRG 540 ==
LOC: JLDR 13:35 → J3W 05-13 21:44
PROVIDERS: ADMIT Obstetrics & Gynecology; ATTEND Obstetrics & Gynecology
PROC: 3E0P7VZ Introduction of Hormone into Female Reproductive, Via Natural or Artificial Opening (ICD-10-PCS; 2020-05-12)
PROC: 10D00Z1 Extraction of Products of Conception, Low, Open Approach (ICD-10-PCS; principal; 2020-05-13)
PROC: 10907ZC Drainage of Amniotic Fluid, Therapeutic from Products of Conception, Via Natural or Artificial Opening (ICD-10-PCS; 2020-05-13)
DX: O61.0 Failed medical induction of labor (principal); O76 Abnormality in fetal heart rate and rhythm complicating labor and delivery; O36.5930 Maternal care for other known or suspected poor fetal growth, third trimester, not applicable or unspecified; O48.0 Post-term pregnancy; O77.0 Labor and delivery complicated by meconium in amniotic fluid; O99.02 Anemia complicating childbirth; D64.9 Anemia, unspecified; Z3A.41 41 weeks gestation of pregnancy; Z37.0 Single live birth
CPT/HCPCS: 36415; 36600; 80048; 82803; 85025; 85610; 85730; 86780; 86850; 86900; 86901; 88307-TC; C9803; G0008; Q2036; U0003

== ENCOUNTER 2021-10-26 12:43 | Observation (INO) | payer OTHER ==
[2021-10-26 15:21] LABS: BASO % 1.6 % (0-2.0); EOS % 1.6 % (0-4.5); HEMATOCRIT 21.1 % (32.4-45.2); LYMPH % 41.3 % (8-40); MCHC 29.5 g/dl (32.0-36.0); MEAN CELL VOLUME 57.7 fl (80-96); MEAN PLT VOLUME 8.7 fl (7.5-11.1); NEUT % 46.5 % (42.8-82.8); PLATELET COUNT 262 10^3/uL (134-434); RBC 3.66 M/mm3 (3.60-5.2); RDW 20.4 % (11.6-15.6); WHITE BLOOD COUNT 3.8 K/mm3 (4.0-10.0)
[2021-10-26 15:26] LABS: HEMOGLOBIN 6.2 GM/dL (10.7-15.3)
[2021-10-26 15:33] LABS: CALCIUM 8.4 mg/dL (8.5-10.1)
[2021-10-26 15:34] LABS: ALBUMIN 3.4 g/dl (3.4-5.0); BLOOD UREA NITROGEN 8.4 mg/dL (7-18)
[2021-10-26 15:37] LABS: CREATININE 0.6 mg/dL (0.55-1.3)
[2021-10-26 15:38] LABS: BILIRUBIN,TOTAL 0.2 mg/dL (0.2-1); TOT PROT 7.1 g/dl (6.4-8.2)
[2021-10-26 15:45] LABS: ANISOCYTOSIS 3+
[2021-10-26 21:07] VITALS: BMI 26.4
[2021-10-27 08:28] LABS: EOS % 1.5 % (0-4.5); HEMATOCRIT 27.4 % (32.4-45.2); HEMOGLOBIN 8.5 GM/dL (10.7-15.3); MCHC 30.9 g/dl (32.0-36.0); MEAN CELL VOLUME 62.8 fl (80-96); MEAN PLT VOLUME 8.8 fl (7.5-11.1); MONO % 6.3 % (3.8-10.2); NEUT % 60.2 % (42.8-82.8); PLATELET COUNT 263 10^3/uL (134-434); RBC 4.37 M/mm3 (3.60-5.2); RDW 26.2 % (11.6-15.6); WHITE BLOOD COUNT 5.7 K/mm3 (4.0-10.0)
[2021-10-27 08:35] LABS: MCH 19.4 pg (25.7-33.7)
[2021-10-27 08:42] LABS: CALCIUM 8.3 mg/dL (8.5-10.1)
[2021-10-27 08:43] LABS: ALBUMIN 3.4 g/dl (3.4-5.0); BLOOD UREA NITROGEN 11.5 mg/dL (7-18)
[2021-10-27 08:45] LABS: CREATININE 0.6 mg/dL (0.55-1.3)
[2021-10-27 08:47] LABS: TOT PROT 6.9 g/dl (6.4-8.2)
[2021-10-27] MEDS ORDERED: IRON SUCROSE INJECTION 100 MG in SODIUM CHLORIDE 95 ML IVPB ONE (22:06)
[2021-10-28 08:29] LABS: BASO % 1.3 % (0-2.0); EOS % 2.5 % (0-4.5); HEMATOCRIT 28.4 % (32.4-45.2); HEMOGLOBIN 8.8 GM/dL (10.7-15.3); LYMPH % 33.9 % (8-40); MCHC 30.8 g/dl (32.0-36.0); MEAN CELL VOLUME 62.8 fl (80-96); MEAN PLT VOLUME 8.7 fl (7.5-11.1); MONO % 7.6 % (3.8-10.2); NEUT % 54.7 % (42.8-82.8); PLATELET COUNT 239 10^3/uL (134-434); RBC 4.52 M/mm3 (3.60-5.2); RDW 25.1 % (11.6-15.6); WHITE BLOOD COUNT 5.7 K/mm3 (4.0-10.0)
[2021-10-28 08:31] LABS: MCH 19.4 pg (25.7-33.7)
[2021-10-28 08:38] LABS: INR 1.16 (0.83-1.09); PROTHROMBIN TIME (PATIENT) 13.4 SEC (9.7-13.0)
[2021-10-28 08:58] LABS: CALCIUM 7.9 mg/dL (8.5-10.1)
[2021-10-28 08:59] LABS: ALBUMIN 3.2 g/dl (3.4-5.0); BLOOD UREA NITROGEN 11.3 mg/dL (7-18); MAGNESIUM 2.1 mg/dL (1.8-2.4)
[2021-10-28 09:02] LABS: CREATININE 0.6 mg/dL (0.55-1.3); PHOSPHOROUS 3.6 mg/dL (2.5-4.9)
[2021-10-28 09:03] LABS: BILIRUBIN,TOTAL 0.5 mg/dL (0.2-1); TOT PROT 6.9 g/dl (6.4-8.2)
[2021-10-28 13:48] VITALS: BP 112/56; PULSE 60; TEMP 98.2
[2021-10-28] MEDS ORDERED: FERROUS SO4 325 MG TABLET (FP) PO SCH (17:30)
== END 2021-10-28 15:13 | disposition home or self-care (01) ==
LOC: JER 12:43 → UNDOADMOB 15:22 → JERBED 15:22 → J7W 18:53 → JERBED 18:53 → OBSVTOIN 22:55 → INTOOBSV 22:55 → J7W 10-27 12:52
PROVIDERS: ADMIT Internal Medicine; ATTEND Internal Medicine
PROC: 30233N1 Transfusion of Nonautologous Red Blood Cells into Peripheral Vein, Percutaneous Approach (ICD-10-PCS; principal; 2021-10-27)
DX: Z90.49 Acquired absence of other specified parts of digestive tract (principal); D50.8 Other iron deficiency anemias; R23.1 Pallor; N92.0 Excessive and frequent menstruation with regular cycle
CPT/HCPCS: 36415; 36430; 36511; 71046-TC-FY; 76830-TC; 80053; 82272; 82728; 83540; 83550; 83735; 84100; 84466; 84703; 85025; 85610; 85730; 86850; 86900; 86901; 86922; 93005; 93010; 99285-25; C9803-CS; G0378; P9016; P9038; P9058; U0003; U0005